=== PATIENT | female | born 2000 | race Caucasian/White ===

== ENCOUNTER → 2020-04-06 | Outpatient (CLI) | payer BC ==
[~2020-04-06] MED LIST: AMOXICILLI400 MG/51 PO; MULTIPLE VITAMI1 CAP PO; NO HOME MEDICATIONS
== END ==
LOC: ZCOL.LAB 18:08
DX: Z20.828 Contact with and (suspected) exposure to other viral communicable diseases (principal)

== ENCOUNTER → 2020-07-07 | Outpatient (CLI) | payer BC | LOC: ZCOL.LAB 16:57 | DX: R50.9 Fever, unspecified (principal); R51.9 Headache, unspecified; R05 Cough; Z20.828 Contact with and (suspected) exposure to other viral communicable diseases ==

== ENCOUNTER 2021-06-19 16:09 | Emergency (ER) | payer BC ==
[~2021-06-19] VITALS: Ht 165.1 cm; Wt 65.9 kg
[2021-06-19 17:16] LABS: BASO % 0.4 % (0.0-2.0); EOS % 0.2 % (0-4.0); GRAN % 75.5 % (42.2-75.2); HEMATOCRIT 39.4 % (37.0-47.0); HEMOGLOBIN 13.9 g/dl (12.5-16.0); LYMPH # 1.7 (1.2-3.4); LYMPH % 18.7 % (20.0-51.0); MEAN CELL VOLUME 83 fl (80.0-100.0); MEAN CORPUSCULAR HEMOGLOBIN 29 pg (27.0-31.0); MEAN CORPUSCULAR HGB CONC 35 g/dl (33.0-37.0); MEAN PLATELET VOLUME 8.5 fl (7.4-10.4); MONO # 0.5 (0.1-0.6); MONO % 4.9 % (1.7-9.3); PLATELET COUNT 349 K/mm3 (130-400); RED BLOOD COUNT 4.77 M/mm3 (4.10-5.30); REDCELL DISTRIBUTION WIDTH-CV 11.9 % (11.5-14.5)
[2021-06-19 17:31] LABS: BILIRUBIN,TOTAL 0.4 mg/dL (0.0-1.0); CALCIUM 10.1 mg/dL (8.4-10.2); CREATININE, serum 0.78 (0.52-1.25); POTASSIUM 3.3 mmol/L (3.4-5.0); TOTAL PROTEIN 8.1 gm/dL (6.4-8.2)
[2021-06-19 18:40] VITALS: BP 120/72; PULSE 88; TEMP 97.6
== END 2021-06-19 18:42 | disposition home or self-care (01) ==
LOC: COL.ER 16:09
PROVIDERS: Physician Assistant
DX: F41.9 Anxiety disorder, unspecified (principal); F90.9 Attention-deficit hyperactivity disorder, unspecified type
CPT/HCPCS: J2060; J7030